=== PATIENT | male | born 1985 | race Two or more races ===

== ENCOUNTER 2016-12-23 21:37 | Emergency (ER) | payer BC ==
[~2016-12-23] VITALS: Ht 172.7 cm; Wt 67.3 kg
[2016-12-23 23:20] VITALS: BP 132/70
== END 2016-12-23 23:28 | disposition home or self-care (01) ==
LOC: EXP 21:37 → EME 21:37 → EXP 23:28
DX: M54.2 Cervicalgia (principal); R22.1 Localized swelling, mass and lump, neck; F17.200 Nicotine dependence, unspecified, uncomplicated
CPT/HCPCS: 99281; 99284